=== PATIENT | female | born 1950 | race Caucasian/White ===

== ENCOUNTER → 2017-03-09 | Outpatient (CLI) | payer OTHER, BC | LOC: BMCIMAGING 13:27 | PROVIDERS: ATTEND Internal Medicine | DX: Z12.31 Encounter for screening mammogram for malignant neoplasm of breast (principal); Z13.820 Encounter for screening for osteoporosis; M85.80 Other specified disorders of bone density and structure, unspecified site | CPT/HCPCS: G0202 ==

== ENCOUNTER 2018-01-04 07:41 | Day surgery (SDC) | payer OTHER, BC ==
[2018-01-04 09:27] LABS: INR 1.16 (0.83-1.16)
[2018-01-04] MEDS ORDERED: MIDAZOLAM 2 MG/2 ML VIAL IVP PRN (09:36)
[2018-01-04] MEDS ORDERED: NALOXONE HCL 0.4 MG/ML INJ IVP PRN (09:36)
[2018-01-04] MEDS ORDERED: HEPARIN 10,000 UNIT/10 ML MDV (1,000 UNIT/ML) IVP PRN (09:36)
[2018-01-04] MEDS ORDERED: fentaNYL 100 MCG/2 ML INJ IVP PRN (09:36)
[2018-01-04] MEDS ORDERED: ALTEPLASE 2 MG VIAL IVP PRN (09:36)
[2018-01-04] MEDS ORDERED: GLUCAGON HCL 1 MG VIAL IVP PRN (09:36)
[2018-01-04] MEDS ORDERED: FLUMAZENIL 0.5 MG/5 ML MDV IVP PRN (09:36)
[2018-01-04] MEDS ORDERED: MEPERIDINE 25 MG/ML SYR IVP PRN (09:36)
[2018-01-04] MEDS ORDERED: PROTAMINE SULFATE 50 MG/5 ML VIAL IVP PRN (09:36)
[2018-01-04] MEDS ORDERED: NS 1,000 ML IV SCH (09:45)
--- NOTE | 2018-01-04 10:33 | PDPROPOC ---
Sedation Plan of Care Sedation Plan of Care: vital signs stable, mental status noted, patient educated of risks, benefits, alternatives, patient can tolerate sedation ASA Classification: ASA 2 Planned drugs: fentanyl, midazolam Mallampati Score: Class 1 Mallampati Reference Image: Patient passed 3-3-2 rule?: Yes
--- NOTE | 2018-01-04 10:33 | PDGENHP ---
History & Physical Chief Complaint: WALDENSTROM'S MACROGLULINEMIA; History of Present Illness: 40% IN INTIAL DIAGNOSIS. FOLLOW UP. ? CHEMOTHERAPY Pertinent Past, Social, Family History: S/P PREVIOUS BIOPSY. ATRIAL FLUTTER, S/ P ABLATION; PARTIAL THYROIDECTOMY. SMOKING HISTORY. Relevant Physical Exam: NOT IN DISTRESS Cardiorespiratory Assessment: RRR, CTA
[2018-01-04] MEDS ORDERED: LIDOCAINE 1% 300 MG/30 ML SDV ONE ×2 (11:03→11:25)
[2018-01-04] MEDS ORDERED: fentaNYL 100 MCG/2 ML INJ ONE ×2 (11:14→11:31)
[2018-01-04] MEDS ORDERED: MIDAZOLAM 2 MG/2 ML VIAL ONE (11:20)
--- NOTE | 2018-01-04 11:52 | PDRADPN ---
Radiology Procedure Note Date of Procedure: 01/04/18 Radiologist: Farzana Gloria Anesthesia: IV Sedation Pre-op Diagnosis: waldenstrom's macroalbuminemia Post-op Diagnosis: same Indication: needs additional BM sampling for staging Procedure: BM aspiration and biopsy Finding(s): two cores obtained; 20cc aspirate obtained via RT anterior iliac approach. Inf/Abcess present in the surg proc area at time of surgery?: No Complications: none Specimen(s): BM aspirate and biopsy
[2018-01-04] MEDS ORDERED: ACETAMINOPHEN 325 MG TAB PO PRN (11:53)
[2018-01-04] MEDS ORDERED: ONDANSETRON 4 MG/2 ML VIAL IVP PRN (11:53)
[2018-01-04 12:54] LABS: PLATELET COUNT 145 10^3/uL (150-400)
[2018-01-04 14:24] VITALS: BP 107/62
== END 2018-01-04 13:50 | disposition home or self-care (01) ==
LOC: FIMAGING 07:41
PROVIDERS: ATTEND Internal Medicine Hematology & Oncology
PROC: 079T3ZX Drainage of Bone Marrow, Percutaneous Approach, Diagnostic (ICD-10-PCS; principal; 2018-01-04 12:01)
PROC: 07DR3ZX Extraction of Iliac Bone Marrow, Percutaneous Approach, Diagnostic (ICD-10-PCS; principal; 2018-01-04 12:01)
DX: C88.0 Waldenstrom macroglobulinemia (principal)
CPT/HCPCS: J1642; J2250; J2310; J3010